=== PATIENT | male | born 1960 | race African-American/Black ===

== ENCOUNTER 2016-09-23 05:37 | Inpatient (IN) | payer BC ==
[2016-09-16 10:43] LABS: BASOPHILS 0.4 %; BASOPHILS ABSOLUTE 0.02 10/3/uL (0.0-0.16); EOSINOPHILS 1.3 %; EOSINOPHILS ABSOLUTE 0.06 10/3/uL (0.0-0.53); HEMATOCRIT 40.1 % (40.0-51.0); HEMOGLOBIN 12.9 g/dL (13.6-17.8); IMMATURE GRANULOCYTES 0.2 %; IMMATURE GRANULOCYTES ABSOLUTE 0.01 10/3/uL (0.0-0.11); LYMPHOCYTES 34.9 %; LYMPHOCYTES ABSOLUTE 1.65 10/3/uL (0.67-4.30); MEAN CORPUSCULAR HEMOGLOB 29.4 pg (26.0-34.0); MEAN CORPUSCULAR VOLUME 91.3 fL (80-100); MONOCYTES 4.4 %; MONOCYTES ABSOLUTE 0.21 10/3/uL (0.21-1.20); NEUTROPHILS 58.8 %; NEUTROPHILS ABSOLUTE 2.78 10/3/uL (2.02-8.40); PLATELET COUNT 282 10/3/uL (150-400); RBC DISTRIBUTION WIDTH 14.2 % (12.0-16.0); RED CELL COUNT 4.39 10/6/uL (4.7-6.1); WHITE BLOOD CELLS 4.7 10/3/uL (4.5-10.5)
[2016-09-16 10:45] LABS: MANUAL DIFF NO %; MEAN CORPUS HGB CONC 32.2 g/dL (32.0-36.0)
[2016-09-16 10:50] LABS: PARTIAL THROMBO TIME 28.4 SEC (22.5-37.2); PROTIME (NOT ORD) 13.4 SEC (12.0-14.5)
[2016-09-16 10:53] LABS: ASCORBIC ACID (UR NOT ORDER) NEG (NEG); BILIRUBIN, URINE NEGATIVE (NEG); KETONE, URINE NEGATIVE (NEG); LEUKOCYTE ESTERASE(NOT OR TRACE (NEG); WBC (NOT ORDERED) (RFLEX) 12 (0-5)
[2016-09-16 10:55] LABS: BUN (BLOOD UREA NITROGEN) 15 MG/DL (6-23); CALCIUM, SERUM 8.7 MG/DL (8.5-10.4); CHLORIDE, SERUM 105 MMOL/L (96-112); CO2 (CARBON DIOXIDE) 28 MMOL/L (24-34); CREATININE 1.11 MG/DL (0.70-1.30); GFR AFRICAN AMERICAN 87 ML/MIN (>=60); GFR NON AFRICAN AMERICAN 75 ML/MIN (>=60); GLUCOSE, SERUM 88 MG/DL (60-99); POTASSIUM, SERUM 4.1 MMOL/L (3.5-5.3); SODIUM, SERUM 142 MMOL/L (135-148)
--- NOTE | ~2016-09-23 | HP ---
History And Physical [address] [address] NAME: CITLALY SAUCEDO JR : 62 [place] [facility] [place] [id number] AGE: 55 ADM/REG DATE : MR#: [id number] REPORT SERV DATE: 09/22/16 DICTATED BY: JUSTINO WELLS DATE: 09/22/16 REPORT STATUS : Draft TRANSCRIBED BY: MODL DATE: 09/22/16 DATE OF ADMISSION: 09/23/2016 CHIEF COMPLAINT: Adenocarcinoma of the prostate, clinical stage T1c, [place] score 4+4=8, maximum PSA of 12.2. HISTORY OF PRESENT ILLNESS: Mr. Saucedo is a 55-year-old male who was recently diagnosed with adenocarcinoma of the prostate with a saturation biopsy done at this facility. He had previous biopsies in 2009 and 2013. He also had an MRI of the prostate in 2014. His PSA steadily adiel and it was 12.25 when the last set of the biopsies were taken. Biopsy revealed [place] score 4+4=8 from the right apex and the left apex. Staging CT scan of the abdomen and pelvis did not reveal any metastatic disease. Different treatment options regarding the prostate cancer were proposed to the patient. He has consented to a laparoscopic robot-assisted radical prostatectomy and bilateral pelvic node sampling. PAST MEDICAL HISTORY: Allergic rhinitis, dyslipidemia, and hypertension. PAST SURGICAL HISTORY: LASIK surgery. MEDICATIONS: Losartan, Crestor, aspirin, and Zyrtec. ALLERGIES: NONE. SOCIAL HISTORY: Denies drug, alcohol, or tobacco abuse. FAMILY HISTORY: Father and uncle with prostate cancer. REVIEW OF SYSTEMS: Generally negative. PHYSICAL EXAMINATION: GENERAL: Shows a well-developed, well-nourished male, in no acute distress. He is thin and fit. He has good cognitive function. HEENT: Sclerae anicteric. NECK: Supple. LUNGS: Clear. HEART: Regular rate and rhythm. ABDOMEN: Soft, nontender. There are no palpable masses. GENITOURINARY: Penis is normal. Testes are descended. No testicular masses. No inguinal hernia. The prostate is large, smooth, no nodules. LOWER EXTREMITIES: Showed no deformities. IMPRESSION: Adenocarcinoma of the prostate, clinical stage T1c, [place] score 4+4=8, maximum PSA of 12.25. PLAN: Laparoscopic robot-assisted radical prostatectomy and bilateral pelvic node sampling. History And Physical [place] [address] [place]. [address] NAME: CITLALY SAUCEDO JR : 62 [place] [facility] [place] [id number] AGE: 55 ADM/REG DATE : MR#: [id number] REPORT SERV DATE: 09/22/16 DICTATED BY: JUSTINO WELLS DATE: 09/22/16 REPORT STATUS : Draft TRANSCRIBED BY: BOOGIE DATE: 09/22/16 Potential complications of bleeding, infection, urinary incontinence, bladder neck obstruction, loss of ejaculate, erectile dysfunction, and injury to adjacent structures such as bladder, ureters, rectum, colon, intestine, nerves, as well as bowel obstruction and complications have all been explained to the patient. He both manually and verbally consents to proceed. PF/BOOGIE Justino Wells M.D. / [id number] CC: Aristides Helms M.D.
--- NOTE | ~2016-09-23 | OP ---
Record Of Operation [facility] [address] [place]. [address] NAME: CITLALY MONSON JR : 62 STATUS : REG [facility] [place] PAT#: [id number] AGE: 55 ADM/REG DATE : 09/23/16 MR#: [id number] REPORT SERV DATE: 09/23/16 DICTATED BY: JUSTINO WELLS DATE: 09/23/16 REPORT STATUS : Draft TRANSCRIBED BY: MODL DATE: 09/23/16 DATE OF PROCEDURE: 09/23/2016 PREOPERATIVE DIAGNOSIS: Adenocarcinoma of the prostate, clinical stage T1c, [place] score 4+4=8, maximum PSA 12.25. POSTOPERATIVE DIAGNOSIS: Adenocarcinoma of the prostate, clinical stage T1c, [place] score 4+4=8, maximum PSA 12.25. PROCEDURES: Laparoscopic robot-assisted radical prostatectomy (bilateral nerve preservation) and laparoscopic bilateral pelvic node sampling. SURGEON: Justino Wells M.D. ESCROW ASSISTANT: Damon Huang. ANESTHESIA: General endotracheal. LOCAL BLOOD LOSS: Estimated at 100 mL. FLUID REPLACEMENT: 3 L of crystalloid. DRAINS: An 18-Equatorial [place] Wells catheter per urethra and 15 mm Quinton drain in prevesical space. INDICATION: A 55-year-old male with the above diagnosis. Different management options were proposed to the patient. He has decided to proceed with laparoscopic robot-assisted radical prostatectomy. TECHNIQUE: The patient was identified, brought to the operating room, administered general anesthetic agent by the Anesthesia Service, and intubated. He was positioned in dorsal lithotomy position. The abdomen was clipped. The entire abdomen, penis, groin, scrotum, and perineum were prepped and draped in usual sterile fashion. A 16-Equatorial [place] Wells catheter was passed in the bladder and left for drainage. All laparoscopic port sites were first infiltrated with 0.5% Marcaine plain. A 3 cm skin incision was made above the umbilicus and carried down to the subcutaneous tissue. The rectus fascia was exposed and holding sutures were placed in the rectus fascia. The transverse incision was made in the rectus fascia and the underlying peritoneum was identified and opened sharply. A balloon trocar was placed into the peritoneal space and a pneumoperitoneum was created by insufflating carbon dioxide. The abdominal pressure raised to 15 mmHg and held there until otherwise specified. The patient was placed in steep Trendelenburg. Three robot arm ports and two assistant director of admissions ports were placed under direct laparoscopic vision. Once ports were in position, da Aishwarya robot was brought to the table and mated to the ports. I took down some adhesions and mobilized the sigmoid colon off the left pelvic sidewall. I then opened the cul-de-sac sharply and exposed the seminal structures. The left and right vasa deferens were dissected out and clipped proximally and transected distally. The left Record Of Operation [place] [id number] [facility] [place]. [address] NAME: CITLALY MONSON JR : 62 STATUS : REG [facility] PAT#: [id number] AGE: 55 ADM/REG DATE : 09/23/16 MR#: [id number] REPORT SERV DATE: 09/23/16 DICTATED BY: JUSTINO WELLS DATE: 09/23/16 REPORT STATUS : Draft TRANSCRIBED BY: BOOGIE DATE: 09/23/16 and right seminal vesicles were dissected out using clips on lateral border for hemostasis. Denonvilliers' fascia was opened sharply and the rectum swept off the undersurface of the prostate all the way out to the apex. I began to mobilize the neurovascular bundles off the undersurface of the prostate sharply. I then divided medial umbilical ligaments and urachus and dissected out the space of Retzius and swept the bladder off the anterior abdominal wall and the symphysis pubis. The peritoneum was opened just lateral to the medial umbilical ligaments on each side all the way to the vasa deferentia bilaterally. The fat overlying the prostate gland was taken off with sharp dissection. I pierced the endopelvic fascia sharply at the prostatovesical junction. I opened the endopelvic fascia out to the puboprostatic ligaments bilaterally. Dorsal venous complex was isolated and secured with laparoscopic ASTRID stapling device. The neurovascular bundles were released from the apices bilaterally. I dissected the neurovascular bundles off the prostate back to the posterior pedicles bilaterally. On the left side at the apex, I sampled part of the neurovascular bundle and sent it as the left apex comes back as containing no prostatic tissue. I switched to 30-degree down lens and developed a plane with the bladder neck to the prostate. I opened the anterior bladder neck and elevated the Wells catheter. I then came through the posterior bladder neck being careful to excise a small median lobe. I carried my dissection down and exposed the previously dissected out seminal structures. Last attachments of the bladder taken off the prostate with sharp dissection. The posterior pedicles were secured with locking clips and divided. The prostate is now mobile all the way out to the apex. The last attachments of striated sphincter were taken off the apex of the prostate. The urethra was divided sharply and the posterior striated sphincter was divided. The specimen was now free. It appears intact and placed in specimen retrieval bag and held for later retrieval. I lowered the abdominal pressure down to 7 mmHg and held it there for the next 10 minutes. The pelvis was irrigated copiously. Fastidious hemostasis achieved. The posterior reconstruction in two layers using 3-0 V-Loc was completed. I then did a modified van Velthoven vesicourethral anastomosis with 3-0 V-Loc. When the anastomosis was completed, I inserted a new 18-Equatorial [place] Wells catheter. 12 mL of sterile water in the catheter balloon. The anastomosis tested by filling the bladder with 240 mL of saline. It holds without extravasation. The bladder was then drained. I then did bilateral pelvic node sampling. The external iliac obturator and internal iliac lymph nodes were sampled from each side. The patient had very little timothy tissue. Locking clips and metallic clips were used for lymphostasis and hemostasis. The node packets were placed into a specimen retrieval bag and held for later retrieval. I removed the instrument out of third robot arm port and placed a 15 mm Quinton drain through Record Of Operation [address] [place]. [address] NAME: CITLALY MONSON : 62 STATUS : REG [facility]#: [id number] AGE: 55 ADM/REG DATE : 09/23/16 MR#: [id number] REPORT SERV DATE: 09/23/16 DICTATED BY: JUSTINO WELLS DATE: 09/23/16 REPORT STATUS : Draft TRANSCRIBED BY: MODL DATE: 09/23/16 that port leaving in the prevesical space. The ports removed and drain sutured to skin with 2-0 Prolene. The da Aishwarya robot was undocked. I transferred the strings of the specimen bag out through the umbilical port. The assistant director of admissions 12 mm port was removed and the fascia there was closed with a Kali-Belle endoscopic closure system. The patient was taken out of Trendelenburg. I then removed the other ports under low pressure. No port site bleeding was noted. I extended my fascial incision by 1 cm in each direction and delivered the specimens out through the wound. I then closed the fascia with [id number] Vicryl sutures. The subcutaneous tissue of all wounds was irrigated copiously. The skin was closed with 4-0 Monocryl at all wound sites. Dressings were applied. The catheter secured to the patient. He was awakened and taken to the recovery unit in stable and satisfactory condition. PF/MODL Justino Wells M.D. / [id number] CC: Aristides Helms M.D.
[~2016-09-23 05:37] MED LIST: ASAB PO; COZAAR100 MG PO; CRESTOR20 MG PO; ZYRTEC ALLGY10 MG PO
[2016-09-24 05:09] LABS: HEMOGLOBIN 10.9 g/dL (13.6-17.8)
[2016-09-24 05:10] LABS: CALCIUM, SERUM 8.1 MG/DL (8.5-10.4); CHLORIDE, SERUM 108 MMOL/L (96-112); CO2 (CARBON DIOXIDE) 27 MMOL/L (24-34); CREATININE 0.91 MG/DL (0.70-1.30); GFR AFRICAN AMERICAN 110 ML/MIN (>=60); GFR NON AFRICAN AMERICAN 95 ML/MIN (>=60); POTASSIUM, SERUM 4.1 MMOL/L (3.5-5.3); SODIUM, SERUM 143 MMOL/L (135-148)
[2016-09-24 05:15] LABS: HEMATOCRIT 32.6 % (40.0-51.0)
[2016-09-24 05:17] LABS: BUN (BLOOD UREA NITROGEN) 7 MG/DL (6-23); GLUCOSE, SERUM 128 MG/DL (60-99)
[2016-09-24] MEDS ORDERED: NORCO1 TA1 PO (11:30)
== END 2016-09-24 13:06 | disposition home or self-care (01) | DRG 708 ==
LOC: SDC 05:37 → 4SO 15:10
PROVIDERS: Urology
PROC: 0VBQ4ZZ Excision of Bilateral Vas Deferens, Percutaneous Endoscopic Approach (ICD-10-PCS; principal; 2016-09-23 06:30)
PROC: 0VT04ZZ Resection of Prostate, Percutaneous Endoscopic Approach (ICD-10-PCS; principal; 2016-09-23 06:30)
PROC: 8E0W4CZ Robotic Assisted Procedure of Trunk Region, Percutaneous Endoscopic Approach (ICD-10-PCS; principal; 2016-09-23 06:30)
PROC: 0VT34ZZ Resection of Bilateral Seminal Vesicles, Percutaneous Endoscopic Approach (ICD-10-PCS; principal; 2016-09-23 06:30)
PROC: 07BC4ZX Excision of Pelvis Lymphatic, Percutaneous Endoscopic Approach, Diagnostic (ICD-10-PCS; principal; 2016-09-23 06:30)
DX: C61 Malignant neoplasm of prostate (principal); I10 Essential (primary) hypertension; E78.5 Hyperlipidemia, unspecified; J30.9 Allergic rhinitis, unspecified; Z79.82 Long term (current) use of aspirin
CPT/HCPCS: 80048; 81001; 83735; 85014; 85018; 85025; 85610; 85730; 88305; 88307; 88309; 88331; 93005; A9270-GY; J0690; J1170; J2250; J2270; J2405; J2710; J3010